=== PATIENT | female | born 1980 | race Caucasian/White ===

== ENCOUNTER 2016-09-27 14:43 | Emergency (ER) | payer OTHER ==
[~2016-09-27 14:43] MED LIST: ABILIFY2 M1 PO; CYCLOBENZAPRINE10 M1 PO; EFFEXOR XR150 M1 PO; EFFEXOR XR75 M1 PO; IMPLANT BIRTH CONTRO; IRON1 TAB; MEDROL4 M1 PO; NAPROSYN500 M1 PO; OXCARBAZEPINE150 M1 PO; PERCOCET 5/3251 TAB PO; PRENATAL1 TAB; PROZAC20 MG PO; ULTRAM50 M1 PO
[2016-09-27] MEDS ORDERED: PREDNISONE20 M1 PO (15:44)
[2016-09-27] MEDS ORDERED: PERCOCET 5-3251 EACH PO (15:44)
[2016-10-08] MEDS ORDERED: MUCINEX DM ER1 EAC1 PO (15:35)
[2016-10-08] MEDS ORDERED: ADDERALL 2020 MG/TAB PO (15:35)
[2016-10-08] MEDS ORDERED: BIRTH CONTROL IMPLAN (15:36)
== END 2016-09-27 16:31 ==
LOC: EDMED 14:43
DX: M54.42 Lumbago with sciatica, left side (principal); Z98.890 Other specified postprocedural states
CPT/HCPCS: J1170

== ENCOUNTER 2016-10-12 09:43 | Day surgery (SDC) | payer OTHER ==
[~2016-10-12 09:43] MED LIST changes: +ADDERALL 2020 MG/TAB PO; +BIRTH CONTROL IMPLAN; +MUCINEX DM ER1 EAC1 PO; +PERCOCET 5-3251 EACH PO; +PREDNISONE20 M1 PO
== END 2016-10-12 16:20 ==
LOC: SHSB 09:43 → PACU 14:06 → SHSB 15:00
PROC: 0SB20ZZ Excision of Lumbar Vertebral Disc, Open Approach (ICD-10-PCS; principal; 2016-10-12)
PROC: 01NB0ZZ Release Lumbar Nerve, Open Approach (ICD-10-PCS; 2016-10-12)
DX: M51.16 Intervertebral disc disorders with radiculopathy, lumbar region (principal); F41.9 Anxiety disorder, unspecified; F32.9 Major depressive disorder, single episode, unspecified; D64.9 Anemia, unspecified; G43.909 Migraine, unspecified, not intractable, without status migrainosus; F17.210 Nicotine dependence, cigarettes, uncomplicated; Z79.899 Other long term (current) drug therapy
CPT/HCPCS: J0690; J3010; J3301